=== PATIENT | female | born 1960 | race Caucasian/White ===

== ENCOUNTER → 2017-10-11 | Outpatient (CLI) | payer MEDICARE ==
[~2017-10-11] VITALS: Ht 160 cm; Wt 72.1 kg
[~2017-10-11] MED LIST: ATOR40TA PO; ESTR0.5T3 PO; FERR-84 PO; GLIP10TA13 PO; INSU100V6 SQ; LEVE100015 PO; LIRA0.6P SQ; METF1000 PO; MULT-35 PO; NS IV 1000 ML 1,000 ML IV SCH; NS IV 1000 ML 1,000 ML ONE; PANT20TA2 PO; TOPI50TA37 PO; VILA20TA PO
[2017-10-11 14:34] LABS: BILIRUBIN,URINE NEGATIVE (NEGATIVE); KETONES,URINE NEGATIVE (NEGATIVE); LEUKOCYTE ESTERASE ,URINE NEGATIVE (NEGATIVE); NITRITE,URINE NEGATIVE (NEGATIVE); PH,URINE 7 (5-9); PROTEIN,URINE NEGATIVE (NEGATIVE); UROBILINOGEN,URINE NORMAL (NORMAL)
[2017-10-11 14:49] LABS: SQUAMOUS EPITHELIAL CELL,UR 0-2 /HPF
[2017-10-11 14:56] LABS: MEAN PLATELET VOLUME 11.5 FL (7.4-10.4); RED BLOOD COUNT 4.3 10^6/uL (4.35-5.85); RED CELL DISTRIBUTION WIDTH 15.3 % (10.0-14.5); WHITE BLOOD COUNT 9.9 10^3/uL (4.3-11.0)
[2017-10-11 15:00] VITALS: BP 132/83
[2017-10-11 15:18] LABS: ALBUMIN 4.4 GM/DL (3.2-4.5); BILIRUBIN,TOTAL 0.2 MG/DL (0.1-1.0); CREATININE SERUM 0.96 MG/DL (0.60-1.30); MAGNESIUM 1.6 MG/DL (1.8-2.4); TOTAL PROTEIN 7.3 GM/DL (6.4-8.2)
[2017-10-11 15:55] VITALS: BP 132/83
== END ==
LOC: SDC 14:11
PROVIDERS: ATTEND Nurse Practitioner Family
DX: E86.0 Dehydration (principal); I95.9 Hypotension, unspecified
CPT/HCPCS: 36415; 80053; 81000; 83735; 85027; 96360; 96361